=== PATIENT | female | born 1965 | race Caucasian/White ===

== ENCOUNTER 2019-10-15 07:50 | Inpatient (IN) | payer BC ==
[~2019-10-15] VITALS: Ht 165.1 cm; Wt 79.5 kg
[~2019-10-15 07:50] MED LIST: FLUO10TA PO; PHEN-786 PO
[2019-10-15 08:27] LABS: BASOPHILS % (AUTO) 0.5 % (0-1); EOSINOPHILS % (AUTO) 0.4 % (0-6); HEMATOCRIT 41.7 % (35.0-45.0); LYMPHOCYTES # (AUTO) 0.7 X10'3 (1.1-4.8); LYMPHOCYTES % (AUTO) 7.8 % (21-51); MEAN CORPUSCULAR HEMOGLOBIN 28.5 PG (27.0-31.0); MEAN CORPUSCULAR HGB CONC 33.6 g/dL (33.0-36.5); MONOCYTES # (AUTO) 0.8 X10'3 (0-0.9); MONOCYTES % (AUTO) 8.3 % (2-12); NEUTROPHILS # (AUTO) 7.7 X10'3 (1.8-7.7); PLATELET COUNT 251 X10'3 (140-440); RED CELL DISTRIBUTION WIDTH 14.3 % (11.5-14.5); WHITE BLOOD COUNT 9.3 X10'3 (4.5-11.0)
[2019-10-15 08:41] LABS: PARTIAL THROMBOPLASTIN TIME 24 SECONDS (22-32)
[2019-10-15 08:44] LABS: ALANINE AMINOTRANSFERASE 541 U/L (12-78); ALBUMIN 3.9 G/DL (3.4-5.0); ALKALINE PHOSPHATASE 289 IU/L (46-116); ANION GAP 8 (8-16); ASPARTATE AMINO TRANSFERASE 417 U/L (10-37); BILIRUBIN,TOTAL 5.2 MG/DL (0.1-1.0); BLOOD UREA NITROGEN 9 MG/DL (7-18); BUN/CREATININE RATIO 10.7 (6.6-38.0); CALCIUM 10.1 MG/DL (8.5-10.1); CHLORIDE 105 MMOL/L (99-107); CREATININE 0.84 MG/DL (0.40-0.90); GLUCOSE 137 MG/DL (70-104); POTASSIUM 3.5 MMOL/L (3.5-5.1); SODIUM 140 MMOL/L (135-145); TOTAL CARBON DIOXIDE 27.5 MMOL/L (24-32); eGFR 71 ML/MIN
[2019-10-15 08:45] LABS: ETHANOL < 0.010 GM/DL (0.0-0.010); MAGNESIUM 1.8 MG/DL (1.5-2.4)
[2019-10-15 09:16] LABS: LIPASE 12821 U/L (73-393)
[2019-10-15] MEDS ORDERED: potassium Cl 20 mEq SR tablet PO PRN (09:50)
[2019-10-15] MEDS ORDERED: HYDROcodone/acetaminophen 5mg/325mg tablet PO PRN (09:50)
[2019-10-15] MEDS ORDERED: magnesium 4gm in 100ml NS 100 ML IV PRN (09:50)
[2019-10-15] MEDS ORDERED: morphine 2 MG/ML inj. syringe IV PRN ×2 (09:50)
[2019-10-15] MEDS ORDERED: acetaminophen 325mg tablet PO PRN (09:50)
[2019-10-15] MEDS ORDERED: magnesium hydroxide 30ml (MOM) UD suspension PO PRN (09:50)
[2019-10-15] MEDS ORDERED: magnesium Cl slow-release 64mg tablet PO PRN (09:50)
[2019-10-15] MEDS ORDERED: morphine 4 MG/ML inj SYRINge IV ONE (09:50)
[2019-10-15] MEDS ORDERED: bisacodyl 10mg suppository rectal RC PRN (09:50)
[2019-10-15] MEDS ORDERED: mag hydrox/Alum hydrox/simeth 30ml oral suspension PO PRN (09:50)
[2019-10-15] MEDS ORDERED: ondansetron/PF 4mg/2ml inj IV ONE (09:50)
[2019-10-15] MEDS ORDERED: metoclopramide 5 mg/ml inj IV PRN (09:50)
[2019-10-15] MEDS ORDERED: potassium CL 10mEq/100ml bag 100 ML IV PRN ×2 (09:50)
[2019-10-15] MEDS ORDERED: magnesium 2GM in 50ml NS 50 ML IV PRN (09:50)
[2019-10-15 10:11] LABS: HEMOGLOBIN A1C 5.7 % (4.5-6.2)
[2019-10-15] MEDS: dextrose 5%-normal saline 1,000 ML IV SCH ×2 (10:20→20:20)
--- NOTE | 2019-10-15 10:58 | NUR ---
ATTEMPTED TO CALL REPORT TO JENA NIX ON SURGICAL UNIT. NURSE IS NOT AVAILABLE TO GET REPORT AND WILL CALL BACK, WHEN ABLE.
--- NOTE | 2019-10-15 11:13 | NUR ---
Patient in room ED 8. I have received report from JENA Lutz and had the opportunity to ask questions and assume patient care.
--- NOTE | 2019-10-15 11:30 | NUR ---
Pt arrived to surgical floor via gurney. Settled in room 344B with all belongings.
[2019-10-15 11:40] VITALS: BP 113/61
[2019-10-15] MEDS: morphine 2 MG/ML inj. syringe IV PRN ×2 (11:57→20:21)
[2019-10-15] MEDS: ondansetron/PF 4mg/2ml inj IV PRN (15:23)
[2019-10-15] MEDS: HYDROcodone/acetaminophen 10/325mg tab PO PRN (15:23)
[2019-10-15] MEDS ORDERED: NO HOME MEDS (15:51)
--- NOTE | 2019-10-15 18:46 | NUR ---
Problems reprioritized. Patient report given, questions answered & plan of care reviewed with JENA Hooks.
--- NOTE | 2019-10-15 18:47 | NUR ---
Patient in room [facility]. I have received report from DINAH BELLA and had the opportunity to ask questions and assume patient care.
[2019-10-15 20:00] VITALS: BP 121/60
[2019-10-15] MEDS: K and/or MAG REPLACEMENT MC SCH (20:00)
[2019-10-15] MEDS: heparin, porcine 5000 units/ml vial SQ SCH (20:24)
[2019-10-15] MEDS: pantoprazole 40 MG vial IV SCH (23:17)
[2019-10-15] MEDS: levoFLOXACIN-Levaquin 750MG/D5 150 ML IV SCH (23:21)
[2019-10-16] VITALS (11 sets, daily range): BP systolic 96–139; BP diastolic 53–85
[2019-10-16] MEDS: ondansetron/PF 4mg/2ml inj IV PRN ×3 (00:47→17:34)
[2019-10-16] MEDS: metroNIDAZOLE-Flagyl 500mg/NS 100 ML IV SCH ×3 (00:47→17:34)
[2019-10-16] MEDS: morphine 2 MG/ML inj. syringe IV PRN ×4 (00:49→17:34)
[2019-10-16] MEDS: acetaminophen 325mg tablet PO PRN (03:58)
[2019-10-16] MEDS: dextrose 5%-normal saline 1,000 ML IV SCH ×2 (05:40→07:53)
--- NOTE | 2019-10-16 06:00 | NUR ---
Patient in room [facility]. I have received report from JENA Douglass and had the opportunity to ask questions and assume patient care.
--- NOTE | 2019-10-16 06:21 | NUR ---
Problems reprioritized. Patient report given, questions answered & plan of care reviewed with ANDIE BELLA.
[2019-10-16 06:41] LABS: BASOPHILS % (AUTO) 0.2 % (0-1); EOSINOPHILS # (AUTO) 0.1 X10'3 (0-0.9); EOSINOPHILS % (AUTO) 0.7 % (0-6); HEMATOCRIT 36.7 % (35.0-45.0); HEMOGLOBIN 12.4 g/dl (12.0-16.0); LYMPHOCYTES # (AUTO) 1.3 X10'3 (1.1-4.8); LYMPHOCYTES % (AUTO) 12.2 % (21-51); MEAN CORPUSCULAR HEMOGLOBIN 28.5 PG (27.0-31.0); MEAN CORPUSCULAR HGB CONC 33.8 g/dL (33.0-36.5); MEAN CORPUSCULAR VOLUME 84.2 FL (78-98); MEAN PLATELET VOLUME 8.1 FL (7.4-10.4); MONOCYTES # (AUTO) 0.7 X10'3 (0-0.9); MONOCYTES % (AUTO) 5.9 % (2-12); NEUTROPHILS # (AUTO) 8.9 X10'3 (1.8-7.7); PLATELET COUNT 217 X10'3 (140-440); RED BLOOD COUNT 4.36 X10'6 (4.20-5.60); RED CELL DISTRIBUTION WIDTH 14.3 % (11.5-14.5)
[2019-10-16 07:11] LABS: ALANINE AMINOTRANSFERASE 343 U/L (12-78); ALBUMIN/GLOBULIN RATIO 0.8 (1.1-1.5); ALKALINE PHOSPHATASE 249 IU/L (46-116); ANION GAP 9 (8-16); ASPARTATE AMINO TRANSFERASE 132 U/L (10-37); BILIRUBIN,TOTAL 1.8 MG/DL (0.1-1.0); BLOOD UREA NITROGEN 8 MG/DL (7-18); BUN/CREATININE RATIO 11.9 (6.6-38.0); CALCIUM 8.8 MG/DL (8.5-10.1); CHLORIDE 108 MMOL/L (99-107); CHOL/HDL RATIO 2.6 (0.00-4.99); CHOLESTEROL 143 MG/DL (0-200); CREATININE 0.67 MG/DL (0.40-0.90); GLUCOSE 143 MG/DL (70-104); HDL CHOLESTEROL 56 MG/DL (35-60); LDL CHOLESTEROL 71 MG/DL (50-100); MAGNESIUM 1.8 MG/DL (1.5-2.4); PHOSPHORUS 2.6 MG/DL (2.3-4.5); POTASSIUM 3.3 MMOL/L (3.5-5.1); SODIUM 141 MMOL/L (135-145); TOTAL CARBON DIOXIDE 24.2 MMOL/L (24-32); TOTAL PROTEIN 6.9 G/DL (6.4-8.2); TRIGLYCERIDES 50 MG/DL (20-135); eGFR > 90 ML/MIN
[2019-10-16 07:46] LABS: LIPASE 2703 U/L (73-393)
[2019-10-16] MEDS: pantoprazole 40 MG vial IV SCH (07:52)
[2019-10-16] MEDS: K and/or MAG REPLACEMENT MC SCH ×2 (08:00→20:00)
[2019-10-16] MEDS: heparin, porcine 5000 units/ml vial SQ SCH ×2 (08:00→22:38)
[2019-10-16] MEDS ORDERED: fentaNYL/PF 50MCG/1 ML 2ML syringe ONE (09:05)
[2019-10-16] MEDS ORDERED: iohexol 300 MG/1 ML 50ml polymer ONE (09:06)
[2019-10-16] MEDS ORDERED: glucagon, human recombinant 1mg kit ONE (09:06)
[2019-10-16] MEDS ORDERED: LIDOcaine Viscous 15ml cup ONE (09:06)
[2019-10-16] MEDS ORDERED: MIDAZolam 5mg/5ml vial ONE (09:06)
[2019-10-16] MEDS ORDERED: ondansetron/PF 4mg/2ml inj ONE (10:51)
[2019-10-16] MEDS: metoclopramide 5 mg/ml inj IV PRN ×2 (13:27→19:09)
[2019-10-16] MEDS: levoFLOXACIN-Levaquin 750MG/D5 150 ML IV SCH (14:40)
[2019-10-16] MEDS: potassium Cl 20 mEq SR tablet PO PRN (14:40)
--- NOTE | 2019-10-16 18:00 | NUR ---
Problems reprioritized. Patient report given, questions answered & plan of care reviewed with JENA Douglass.
--- NOTE | 2019-10-16 18:30 | NUR ---
Patient was rounded on hourly and frequently assessed for needs.
--- NOTE | 2019-10-16 18:32 | NUR ---
Patient in room [facility]. I have received report from ANDIE BELLA and had the opportunity to ask questions and assume patient care.
[2019-10-16] MEDS: lactobacillus rhamnosus 10,000 MMU CELLS/CAPSULE PO SCH (20:00)
[2019-10-17] VITALS (19 sets, daily range): BP systolic 108–143; BP diastolic 58–95
[2019-10-17] MEDS: metroNIDAZOLE-Flagyl 500mg/NS 100 ML IV SCH ×3 (00:30→15:10)
[2019-10-17] MEDS: potassium Cl 20 mEq SR tablet PO PRN ×3 (00:34→20:03)
[2019-10-17] MEDS: acetaminophen 325mg tablet PO PRN (00:34)
[2019-10-17] MEDS: dextrose 5%-normal saline 1,000 ML IV SCH ×3 (02:58→21:55)
[2019-10-17 05:23] LABS: BASOPHILS # (AUTO) 0.2 X10'3 (0-0.2); BASOPHILS % (AUTO) 1.9 % (0-1); EOSINOPHILS # (AUTO) 0.1 X10'3 (0-0.9); EOSINOPHILS % (AUTO) 1.6 % (0-6); HEMATOCRIT 35.6 % (35.0-45.0); HEMOGLOBIN 12.1 g/dl (12.0-16.0); LYMPHOCYTES # (AUTO) 1.3 X10'3 (1.1-4.8); LYMPHOCYTES % (AUTO) 13.5 % (21-51); MEAN CORPUSCULAR HEMOGLOBIN 28.7 PG (27.0-31.0); MEAN CORPUSCULAR HGB CONC 33.9 g/dL (33.0-36.5); MEAN CORPUSCULAR VOLUME 84.8 FL (78-98); MEAN PLATELET VOLUME 8.4 FL (7.4-10.4); MONOCYTES # (AUTO) 0.6 X10'3 (0-0.9); MONOCYTES % (AUTO) 5.9 % (2-12); NEUTROPHILS # (AUTO) 7.2 X10'3 (1.8-7.7); NEUTROPHILS % (AUTO) 77.1 % (42-75); PLATELET COUNT 206 X10'3 (140-440); RED CELL DISTRIBUTION WIDTH 14.3 % (11.5-14.5); WHITE BLOOD COUNT 9.3 X10'3 (4.5-11.0)
[2019-10-17 05:53] LABS: ALANINE AMINOTRANSFERASE 231 U/L (12-78); ALBUMIN 2.8 G/DL (3.4-5.0); ALBUMIN/GLOBULIN RATIO 0.7 (1.1-1.5); ALKALINE PHOSPHATASE 245 IU/L (46-116); ANION GAP 8 (8-16); ASPARTATE AMINO TRANSFERASE 55 U/L (10-37); BILIRUBIN,TOTAL 0.9 MG/DL (0.1-1.0); BLOOD UREA NITROGEN 6 MG/DL (7-18); BUN/CREATININE RATIO 9.2 (6.6-38.0); CHLORIDE 108 MMOL/L (99-107); CREATININE 0.65 MG/DL (0.40-0.90); GLUCOSE 141 MG/DL (70-104); LIPASE 1057 U/L (73-393); MAGNESIUM 1.7 MG/DL (1.5-2.4); PHOSPHORUS 2.5 MG/DL (2.3-4.5); POTASSIUM 3.4 MMOL/L (3.5-5.1); SODIUM 141 MMOL/L (135-145); TOTAL PROTEIN 6.6 G/DL (6.4-8.2); eGFR > 90 ML/MIN
--- NOTE | 2019-10-17 06:17 | NUR ---
Problems reprioritized. Patient report given, questions answered & plan of care reviewed with SOPHIA BELLA.
[2019-10-17] MEDS ORDERED: BUPIVAcaine/PF 2.5mg/ml (0.25%) 10ml vial ONE (06:50)
[2019-10-17] MEDS ORDERED: BUPIVACAINE liposomal/PF 13.3 MG/ML vial IM ONE (06:50)
--- NOTE | 2019-10-17 07:12 | NUR ---
Verified EKG in paper chart, completed in ER.
[2019-10-17] MEDS: K and/or MAG REPLACEMENT MC SCH ×2 (08:00→20:00)
[2019-10-17] MEDS: pantoprazole 40 MG vial IV SCH (08:00)
[2019-10-17] MEDS: levoFLOXACIN-Levaquin 750MG/D5 150 ML IV SCH (08:00)
[2019-10-17] MEDS: heparin, porcine 5000 units/ml vial SQ SCH ×2 (08:00→20:05)
[2019-10-17] MEDS: lactobacillus rhamnosus 10,000 MMU CELLS/CAPSULE PO SCH ×2 (08:00→20:01)
[2019-10-17] MEDS ORDERED: midazolam 2 mg/2 ml injection ONE (08:14)
[2019-10-17] MEDS ORDERED: fentaNYL /PF 50mcg/ml 5ml ampule ONE (08:15)
[2019-10-17] MEDS ORDERED: ceFAZolin 1000mg inj ONE ×2 (08:32)
[2019-10-17] MEDS ORDERED: rocuronium 10mg/ml inj IV ONE (08:32)
[2019-10-17] MEDS ORDERED: propofol inj 20 ML IV ONE (08:32)
[2019-10-17] MEDS ORDERED: ringers solution, lacted 1,000 ML IV SCH (08:52)
[2019-10-17] MEDS ORDERED: ondansetron/PF 4mg/2ml inj IV PRN (08:55)
[2019-10-17] MEDS ORDERED: morphine 2 MG/ML inj. syringe IV PRN (08:55)
[2019-10-17] MEDS ORDERED: meperidine/PF 25mg/ml syringe IV PRN ×2 (08:55)
[2019-10-17] MEDS ORDERED: morphine 4 MG/ML inj SYRINge IV PRN (08:55)
[2019-10-17] MEDS ORDERED: proCHLORperazine 10 MG/2 ml inj IV PRN (08:55)
[2019-10-17] MEDS ORDERED: glycopyrrolate 0.2mg/ml inj ONE (09:59)
[2019-10-17] MEDS ORDERED: neostigmine methylsulfate 1 MG/ML 10ml vial ONE (09:59)
[2019-10-17] MEDS ORDERED: ondansetron/PF 4mg/2ml inj ONE (09:59)
[2019-10-17] MEDS ORDERED: dexamethasone sod phosphate 4mg/ml inj. ONE (10:00)
--- NOTE | 2019-10-17 10:01 | NUR ---
PT RECEIVED FROM OR VIA BED ACCOMPANIED BY ANESTHESIA DR ELLIS, REPORT GIVEN. PT DROWSY BUT AWAKENS, NO C/O PAIN AT THIS TIME. VSS, SKIN PINK AND WARM, RIVER. 20 GAUGE PIV R FA PATENT AND RUNNING LR AT 100 ML/HR. INCISION WITH DERMABOND CDI. Addendum: 10/17/19 at 1026 by Ambreen Nascimento RN Amended: Links added.
[2019-10-17] MEDS: meperidine/PF 25mg/ml syringe IV PRN ×3 (10:27→10:53)
--- NOTE | 2019-10-17 11:21 | NUR ---
TRANSFERRED TO ROOM VIA BED WITH RAILS UP, BED DOWN. REPORT GIVEN AND LEFT IN CARE OF SOPHIA BELLA. VSS, D/C CRITERIA MET, JAIME STINSON PATENT, INCISION WITH DERMABOND CDI, PAIN LEVEL AT 5. Addendum: 10/17/19 at 1128 by Ambreen Nascimento RN Amended: Links added.
--- NOTE | 2019-10-17 11:38 | NUR ---
PT. DELIVER TO ROOM BY IMAGING SCIENCE PROFESSOR. SLEEPY, VSS, RESPONDS TO VERBAL STIMULI, SLEEPING NONVERBAL PAIN 0, BUT WHEN AWAKEN PT. STATES MILD PAIN- "SORENESS". SURGICAL SITE NATHALIA, NO S/SX BLEEDING NOTED. POST OP VITALS STARTED, FLUIDS HUNG. WILL CONT. TO MONITOR PT.
[2019-10-17] MEDS: HYDROcodone/acetaminophen 10/325mg tab PO PRN ×2 (12:50→21:54)
--- NOTE | 2019-10-17 12:58 | NUR ---
pT. VOIDED 200 ML. POST VOID RESIDUAL BLADDER SCAN SHOWED 0 ML. Addendum: 10/17/19 at 1300 by Karey Escoto RN DISREGARD. WRONG PT.
--- NOTE | 2019-10-17 13:51 | NUR ---
PT VOIDED 200ML. POST VOID RESIDUAL 619ML. PT REFUSED TO AMBULATE. WILL STRAIGHT CATH AND THEN REASSESS AT A LATER POINT.
[2019-10-17] MEDS: ondansetron/PF 4mg/2ml inj IV PRN (15:10)
[2019-10-17] MEDS: morphine 2 MG/ML inj. syringe IV PRN (15:11)
[2019-10-17 15:12] LABS: CLARITY,URINE CLEAR (Clear); COLOR,URINE YELLOW (Yellow); GLUCOSE, URINE 500 mg/dl (Neg); KETONES,URINE 15 mg/dl (Neg); LEUKOCYTE ESTERASE ,URINE NEGATIVE (Neg); NITRITES, URINE NEGATIVE (Neg); OCCULT BLOOD,URINE SMALL (Neg); PROTEIN,URINE NEGATIVE (Neg); UROBILINOGEN,URINE 0.2 E.U/dL (0.2-1.0)
[2019-10-17 15:21] LABS: UA COLLECTION TYPE STRAIGHT CATH
[2019-10-17 15:22] LABS: BACTERIA,URINE NONE SEEN /HPF (Neg); MUCUS STRANDS FEW /LPF (Neg); SQUAMOUS EPITHELIAL CELL,UR NONE SEEN /LPF (FEW); WBC,URINE NONE SEEN /HPF (0-4)
--- NOTE | 2019-10-17 15:48 | NUR ---
PAGER ID: [phone] MESSAGE: Pamela ENDRESS 344B S/P DAY0 OPEN BRO. HAD POST VOID RESIDUAL OF 615, WAS STRAIGHT CATHED AT 1300 PER PROTOCOL, MAY WE HAVE ORDER FOR F/C WITH PARAMETERS FOR ADVERTISING OPERATIONS MANAGER? THANK YOU. SOPHIA
--- NOTE | 2019-10-17 18:12 | NUR ---
Gave report to Evonne BELLA.
--- NOTE | 2019-10-17 18:30 | NUR ---
Patient in room [facility]. I have received report from SOPHIA BELLA and had the opportunity to ask questions and assume patient care.
[2019-10-18] VITALS: BP 129/74
[2019-10-18] MEDS: morphine 2 MG/ML inj. syringe IV PRN ×2 (00:43→06:03)
[2019-10-18] MEDS: metroNIDAZOLE-Flagyl 500mg/NS 100 ML IV SCH ×2 (00:45→08:37)
[2019-10-18] MEDS: HYDROcodone/acetaminophen 10/325mg tab PO PRN ×2 (04:16→08:31)
[2019-10-18 05:28] LABS: BASOPHILS % (AUTO) 0.1 % (0-1); EOSINOPHILS % (AUTO) 0.3 % (0-6); HEMATOCRIT 35.5 % (35.0-45.0); LYMPHOCYTES # (AUTO) 1.6 X10'3 (1.1-4.8); LYMPHOCYTES % (AUTO) 14.3 % (21-51); MEAN CORPUSCULAR HEMOGLOBIN 28.8 PG (27.0-31.0); MEAN CORPUSCULAR HGB CONC 33.6 g/dL (33.0-36.5); MEAN CORPUSCULAR VOLUME 85.7 FL (78-98); MEAN PLATELET VOLUME 8.5 FL (7.4-10.4); MONOCYTES # (AUTO) 0.7 X10'3 (0-0.9); MONOCYTES % (AUTO) 6.7 % (2-12); NEUTROPHILS # (AUTO) 8.6 X10'3 (1.8-7.7); NEUTROPHILS % (AUTO) 78.6 % (42-75); PLATELET COUNT 276 X10'3 (140-440); RED BLOOD COUNT 4.15 X10'6 (4.20-5.60); RED CELL DISTRIBUTION WIDTH 13.7 % (11.5-14.5)
[2019-10-18 05:38] LABS: ALANINE AMINOTRANSFERASE 163 U/L (12-78); ALBUMIN 2.9 G/DL (3.4-5.0); ALBUMIN/GLOBULIN RATIO 0.7 (1.1-1.5); ALKALINE PHOSPHATASE 220 IU/L (46-116); ANION GAP 5 (8-16); ASPARTATE AMINO TRANSFERASE 28 U/L (10-37); BILIRUBIN,TOTAL 0.7 MG/DL (0.1-1.0); BLOOD UREA NITROGEN 5 MG/DL (7-18); BUN/CREATININE RATIO 6.7 (6.6-38.0); CALCIUM 9.2 MG/DL (8.5-10.1); CHLORIDE 106 MMOL/L (99-107); CREATININE 0.75 MG/DL (0.40-0.90); GLUCOSE 144 MG/DL (70-104); LIPASE 421 U/L (73-393); MAGNESIUM 1.6 MG/DL (1.5-2.4); PHOSPHORUS 3.1 MG/DL (2.3-4.5); POTASSIUM 3.3 MMOL/L (3.5-5.1); SODIUM 141 MMOL/L (135-145); TOTAL CARBON DIOXIDE 29.7 MMOL/L (24-32); TOTAL PROTEIN 6.9 G/DL (6.4-8.2); eGFR 81 ML/MIN
--- NOTE | 2019-10-18 06:22 | NUR ---
Problems reprioritized. Patient report given, questions answered & plan of care reviewed with SOPHIA BELLA.
[2019-10-18 07:16] VITALS: BP 142/87
[2019-10-18] MEDS: potassium Cl 20 mEq SR tablet PO PRN (08:30)
[2019-10-18] MEDS: heparin, porcine 5000 units/ml vial SQ SCH ×2 (08:31→20:18)
[2019-10-18] MEDS: lactobacillus rhamnosus 10,000 MMU CELLS/CAPSULE PO SCH ×2 (08:31→20:18)
[2019-10-18] MEDS: pantoprazole 40 MG vial IV SCH (08:31)
[2019-10-18] MEDS: K and/or MAG REPLACEMENT MC SCH ×2 (08:32→20:00)
[2019-10-18] MEDS: pantoprazole 40mg Tablet.DR PO SCH (08:35)
[2019-10-18] MEDS: levoFLOXACIN-Levaquin 750MG/D5 150 ML IV SCH (08:37)
--- NOTE | 2019-10-18 09:10 | NUR ---
PAGER ID: [phone] MESSAGE: Pamela Fuentesress 344B c/o uncontrolled pain. ms 2mg, 1mg, [place] 10mg and 5mg ordered and given already. hypo BS, no gas. pt. ref. to ambulate. ALSO UA glucose 500 with ketones... do you still want on D5/NS a@ 100-on CL diet. Karey [phone]
[2019-10-18] MEDS: HYDROmorphone/NS 1 mg/ml CADD 50 ML IV SCH ×8 (11:00→23:00)
[2019-10-18 11:14] VITALS: BP 119/75
[2019-10-18] MEDS: ketorolac tromethamine 15mg/ml inj. IV SCH ×3 (11:55→20:18)
[2019-10-18] MEDS: potassium Cl 20mEq in D5-NS 1,000 ML IV SCH ×2 (11:55→19:22)
--- NOTE | 2019-10-18 18:27 | NUR ---
Gave report to Lianna Lopez RN.
--- NOTE | 2019-10-18 18:36 | NUR ---
Patient in room [facility]. I have received report from JENA Fisher and had the opportunity to ask questions and assume patient care. Addendum: 10/18/19 at 1836 by Mayda Clark RN Amended: Links added.
[2019-10-18 19:37] VITALS: BP 122/75
[2019-10-18 23:20] VITALS: BP 118/64
[2019-10-19] MEDS: HYDROmorphone/NS 1 mg/ml CADD 50 ML IV SCH ×12 (01:00→23:00)
[2019-10-19] MEDS: ketorolac tromethamine 15mg/ml inj. IV SCH ×4 (02:00→20:00)
[2019-10-19] MEDS: potassium Cl 20mEq in D5-NS 1,000 ML IV SCH ×2 (03:00→11:46)
[2019-10-19 05:12] LABS: BASOPHILS % (AUTO) 0.2 % (0-1); EOSINOPHILS # (AUTO) 0.1 X10'3 (0-0.9); EOSINOPHILS % (AUTO) 1.4 % (0-6); HEMATOCRIT 35.3 % (35.0-45.0); HEMOGLOBIN 11.8 g/dl (12.0-16.0); LYMPHOCYTES # (AUTO) 1.6 X10'3 (1.1-4.8); LYMPHOCYTES % (AUTO) 22.3 % (21-51); MEAN CORPUSCULAR HEMOGLOBIN 28.6 PG (27.0-31.0); MEAN CORPUSCULAR HGB CONC 33.5 g/dL (33.0-36.5); MEAN CORPUSCULAR VOLUME 85.3 FL (78-98); MONOCYTES # (AUTO) 0.7 X10'3 (0-0.9); MONOCYTES % (AUTO) 9.3 % (2-12); NEUTROPHILS # (AUTO) 4.9 X10'3 (1.8-7.7); NEUTROPHILS % (AUTO) 66.8 % (42-75); PLATELET COUNT 242 X10'3 (140-440); RED BLOOD COUNT 4.14 X10'6 (4.20-5.60); RED CELL DISTRIBUTION WIDTH 13.8 % (11.5-14.5); WHITE BLOOD COUNT 7.4 X10'3 (4.5-11.0)
[2019-10-19 05:24] LABS: ALANINE AMINOTRANSFERASE 114 U/L (12-78); ALBUMIN 2.7 G/DL (3.4-5.0); ALBUMIN/GLOBULIN RATIO 0.7 (1.1-1.5); ALKALINE PHOSPHATASE 180 IU/L (46-116); ANION GAP 6 (8-16); ASPARTATE AMINO TRANSFERASE 32 U/L (10-37); BILIRUBIN,TOTAL 0.5 MG/DL (0.1-1.0); BLOOD UREA NITROGEN 3 MG/DL (7-18); BUN/CREATININE RATIO 4.2 (6.6-38.0); CALCIUM 8.7 MG/DL (8.5-10.1); CHLORIDE 105 MMOL/L (99-107); CREATININE 0.71 MG/DL (0.40-0.90); GLUCOSE 142 MG/DL (70-104); LIPASE 464 U/L (73-393); MAGNESIUM 1.5 MG/DL (1.5-2.4); PHOSPHORUS 3.2 MG/DL (2.3-4.5); POTASSIUM 3.4 MMOL/L (3.5-5.1); SODIUM 140 MMOL/L (135-145); TOTAL CARBON DIOXIDE 29.1 MMOL/L (24-32); TOTAL PROTEIN 6.6 G/DL (6.4-8.2); eGFR 86 ML/MIN
--- NOTE | 2019-10-19 06:28 | NUR ---
Problems reprioritized. Patient report given, questions answered & plan of care reviewed with JENA Dominguez. Addendum: 10/19/19 at 0628 by Mayda Clark RN Amended: Links added.
[2019-10-19 07:00] VITALS: BP 126/78
[2019-10-19] MEDS: K and/or MAG REPLACEMENT MC SCH ×4 (08:00→20:00)
[2019-10-19] MEDS: heparin, porcine 5000 units/ml vial SQ SCH ×2 (08:10→20:00)
[2019-10-19] MEDS: lactobacillus rhamnosus 10,000 MMU CELLS/CAPSULE PO SCH ×2 (08:11→20:00)
[2019-10-19] MEDS: pantoprazole 40mg Tablet.DR PO SCH (08:11)
[2019-10-19 11:00] VITALS: BP 127/86
[2019-10-19] MEDS ORDERED: potassium CL 10mEq/100ml bag 100 ML IV PRN (12:35)
[2019-10-19] MEDS ORDERED: magnesium Cl slow-release 64mg tablet PO PRN (12:35)
[2019-10-19] MEDS ORDERED: magnesium 4gm in 100ml NS 100 ML IV PRN (12:35)
[2019-10-19] MEDS ORDERED: potassium Cl 20 mEq SR tablet PO PRN ×2 (12:35)
--- NOTE | 2019-10-19 18:12 | NUR ---
Patient in room [facility]. I have received report from JENA Dominguez and had the opportunity to ask questions and assume patient care.
[2019-10-19 19:24] VITALS: BP 107/51
[2019-10-20 00:04] VITALS: BP 105/64
[2019-10-20] MEDS: HYDROmorphone/NS 1 mg/ml CADD 50 ML IV SCH ×3 (01:00→05:00)
[2019-10-20] MEDS: ketorolac tromethamine 15mg/ml inj. IV SCH ×3 (01:55→14:00)
[2019-10-20 05:20] LABS: BASOPHILS # (AUTO) 0.1 X10'3 (0-0.2); BASOPHILS % (AUTO) 0.7 % (0-1); EOSINOPHILS # (AUTO) 0.2 X10'3 (0-0.9); EOSINOPHILS % (AUTO) 2.7 % (0-6); HEMATOCRIT 36.6 % (35.0-45.0); HEMOGLOBIN 12.1 g/dl (12.0-16.0); LYMPHOCYTES # (AUTO) 1.8 X10'3 (1.1-4.8); LYMPHOCYTES % (AUTO) 25.1 % (21-51); MEAN CORPUSCULAR HEMOGLOBIN 28.5 PG (27.0-31.0); MEAN CORPUSCULAR HGB CONC 33.2 g/dL (33.0-36.5); MEAN CORPUSCULAR VOLUME 85.8 FL (78-98); MEAN PLATELET VOLUME 8.3 FL (7.4-10.4); MONOCYTES # (AUTO) 0.6 X10'3 (0-0.9); MONOCYTES % (AUTO) 8.3 % (2-12); NEUTROPHILS # (AUTO) 4.6 X10'3 (1.8-7.7); NEUTROPHILS % (AUTO) 63.2 % (42-75); PLATELET COUNT 278 X10'3 (140-440); RED BLOOD COUNT 4.26 X10'6 (4.20-5.60); RED CELL DISTRIBUTION WIDTH 13.6 % (11.5-14.5); WHITE BLOOD COUNT 7.4 X10'3 (4.5-11.0)
[2019-10-20 05:49] LABS: ALANINE AMINOTRANSFERASE 103 U/L (12-78); ALBUMIN 2.8 G/DL (3.4-5.0); ALBUMIN/GLOBULIN RATIO 0.7 (1.1-1.5); ALKALINE PHOSPHATASE 181 IU/L (46-116); ANION GAP 5 (8-16); ASPARTATE AMINO TRANSFERASE 43 U/L (10-37); BILIRUBIN,TOTAL 0.5 MG/DL (0.1-1.0); BLOOD UREA NITROGEN 5 MG/DL (7-18); BUN/CREATININE RATIO 7.5 (6.6-38.0); CALCIUM 9.4 MG/DL (8.5-10.1); CHLORIDE 106 MMOL/L (99-107); CREATININE 0.67 MG/DL (0.40-0.90); GLUCOSE 105 MG/DL (70-104); MAGNESIUM 1.6 MG/DL (1.5-2.4); POTASSIUM 3.8 MMOL/L (3.5-5.1); SODIUM 139 MMOL/L (135-145); TOTAL PROTEIN 6.8 G/DL (6.4-8.2); eGFR > 90 ML/MIN
[2019-10-20] MEDS ORDERED: oxyCODONE/APAP 5-325mg tablet PO PRN ×2 (06:20)
[2019-10-20] MEDS ORDERED: CADD PCA waste documentation MC PRN (07:35)
[2019-10-20] MEDS: K and/or MAG REPLACEMENT MC SCH ×2 (07:40)
[2019-10-20] MEDS: pantoprazole 40mg Tablet.DR PO SCH (07:44)
[2019-10-20] MEDS: lactobacillus rhamnosus 10,000 MMU CELLS/CAPSULE PO SCH (07:44)
[2019-10-20] MEDS: heparin, porcine 5000 units/ml vial SQ SCH (07:45)
[2019-10-20 08:00] VITALS: BP 120/60
[2019-10-20] MEDS: potassium Cl 20mEq in D5-NS 1,000 ML IV SCH (09:42)
[2019-10-20] MEDS ORDERED: PER5325T PO (11:28)
--- NOTE | 2019-10-20 14:35 | NUR ---
patient states that she understands all discharge instructions and will follow up as directed. IV was removed with the canula intact. Patient was safely wheeled to private vehicle where he mom will take her home.
== END 2019-10-20 15:25 | disposition home or self-care (01) | DRG 414 ==
LOC: ER 07:50 → ED HOLD 09:49 → SUR 3N 11:23
PROVIDERS: ADMIT Family Medicine; ATTEND Family Medicine
PROC: 0F798ZZ Dilation of Common Bile Duct, Via Natural or Artificial Opening Endoscopic (ICD-10-PCS; 2019-10-16)
PROC: 0FC98ZZ Extirpation of Matter from Common Bile Duct, Via Natural or Artificial Opening Endoscopic (ICD-10-PCS; 2019-10-16)
PROC: 0FT40ZZ Resection of Gallbladder, Open Approach (ICD-10-PCS; principal; 2019-10-17 08:11)
DX: K80.62 Calculus of gallbladder and bile duct with acute cholecystitis without obstruction (principal); K85.10 Biliary acute pancreatitis without necrosis or infection; E87.6 Hypokalemia; Z90.710 Acquired absence of both cervix and uterus
CPT/HCPCS: 43262; 43264; 96374; 96375; 96376; 99285; Z7506; Z7508; 36415; 71045; 76700; 80053; 80061; 80320; 81001; 82948; 83036; 83690; 83735; 84100; 84484; 85025; 85610; 85730; 87081; 93005; 99152; 99153; A4215; A4314; A4618; A4620; A7000; C1769; C9113; C9290; G0378; J0690; J1100; J1610; J1644; J1885; J1956; J2175; J2250; J2270; J2405; J2704; J2710; J2765; J3010; J3480; J3490; J7040; J7042; J7120; Q9967

== ENCOUNTER 2019-12-17 10:57 | Emergency (ER) | payer BC ==
[~2019-12-17] VITALS: Ht 167.6 cm; Wt 80.9 kg
[~2019-12-17 10:57] MED LIST changes: -FLUO10TA PO; +NO HOME MEDS; +PER5325T PO; -PHEN-786 PO
--- NOTE | 2019-12-17 12:15 | NUR ---
Barcenas virus swab sent to the lab for processing.
[2019-12-17] MEDS ORDERED: ketorolac tromethamine 15mg/ml inj. IM ONE (12:20)
[2019-12-17 13:04] LABS: ALANINE AMINOTRANSFERASE 52 U/L (12-78); ALBUMIN 3.9 G/DL (3.4-5.0); ALBUMIN/GLOBULIN RATIO 1.1 (1.1-1.5); ALKALINE PHOSPHATASE 123 IU/L (46-116); ANION GAP 12 (8-16); ASPARTATE AMINO TRANSFERASE 37 U/L (10-37); BILIRUBIN,TOTAL 0.3 MG/DL (0.1-1.0); BLOOD UREA NITROGEN 14 MG/DL (7-18); BUN/CREATININE RATIO 21.2 (6.6-38.0); CALCIUM 9.3 MG/DL (8.5-10.1); CHLORIDE 107 MMOL/L (99-107); CREATININE 0.66 MG/DL (0.40-0.90); GLUCOSE 89 MG/DL (70-104); LIPASE 171 U/L (73-393); SODIUM 143 MMOL/L (135-145); TOTAL PROTEIN 7.6 G/DL (6.4-8.2); eGFR > 90 ML/MIN
--- NOTE | 2019-12-17 13:15 | NUR ---
Lab phoned to report they will not run the dupont virus swab until they hear from Dr. Hare. LACEY Perez to speak with Dr. Hare regarding the swab.
--- NOTE | 2019-12-17 13:25 | NUR ---
Rapid Barcenas virus swab cancelled and the send out test can be performed if the patient wishes to have the testing completed. Pt is asymptomatic for COVID-19 at this time. US is at the bedside at this time.
--- NOTE | 2019-12-17 13:30 | NUR ---
Labs recollected due to initial specimens hemolyzed.
[2019-12-17 13:41] LABS: BASOPHILS % (AUTO) 0.7 % (0-1); EOSINOPHILS # (AUTO) 0.1 X10'3 (0-0.9); EOSINOPHILS % (AUTO) 1.6 % (0-6); HEMATOCRIT 40.2 % (35.0-45.0); HEMOGLOBIN 13.3 g/dl (12.0-16.0); LYMPHOCYTES # (AUTO) 1.8 X10'3 (1.1-4.8); LYMPHOCYTES % (AUTO) 30.3 % (21-51); MEAN CORPUSCULAR HEMOGLOBIN 28.2 PG (27.0-31.0); MEAN CORPUSCULAR HGB CONC 33.1 g/dL (33.0-36.5); MEAN CORPUSCULAR VOLUME 85.1 FL (78-98); MEAN PLATELET VOLUME 8.1 FL (7.4-10.4); MONOCYTES # (AUTO) 0.5 X10'3 (0-0.9); MONOCYTES % (AUTO) 7.6 % (2-12); NEUTROPHILS # (AUTO) 3.6 X10'3 (1.8-7.7); NEUTROPHILS % (AUTO) 59.8 % (42-75); PLATELET COUNT 244 X10'3 (140-440); RED BLOOD COUNT 4.73 X10'6 (4.20-5.60); RED CELL DISTRIBUTION WIDTH 14.2 % (11.5-14.5)
[2019-12-17] MEDS ORDERED: iohexol 300mg/ml 100ml inj. ONE (14:00)
--- NOTE | 2019-12-17 14:10 | NUR ---
To CT scan via w/c with Shop Repairer.
[2019-12-17] MEDS ORDERED: diatrozoate meglu/diatrozoate sod (37% iodine) 120ML oral solution PO ONE (16:00)
[2019-12-17] MEDS ORDERED: diatr meglu/diatrizoate 30ml oral sol.-(3 dose) bottle PO ONE (16:00)
[2019-12-17] MEDS ORDERED: NAPR220T67 PO (16:20)
[2019-12-17] MEDS ORDERED: IBUP-24 PO (16:20)
[2019-12-17] MEDS ORDERED: DIPH50CA46 PO (16:20)
--- NOTE | 2019-12-17 16:24 | NUR ---
CT scan staff is aware the patient has been given gastrografin according to Dr. Shaikh's instruction and the scan should be completed within one hour.
--- NOTE | 2019-12-17 16:59 | NUR ---
Pt ambulatory with steady gait to the restroom. Pt is awaiting repeat CT scan to be completed after 171
--- NOTE | 2019-12-17 17:15 | NUR ---
Pt transported via w/c to CT scan for repeat CT scan.
--- NOTE | 2019-12-17 17:36 | NUR ---
Pt returned from CT scan, awaiting CT results for further orders or disposition.
[2019-12-17] MEDS ORDERED: FAMO-49 PO (18:12)
[2019-12-17] MEDS ORDERED: DICY10CA88 PO (18:12)
[2019-12-17 18:32] VITALS: BP 132/84
== END 2019-12-17 18:40 | disposition home or self-care (01) ==
LOC: ER 10:57
DX: R10.11 Right upper quadrant pain (principal); Z90.710 Acquired absence of both cervix and uterus; Z79.899 Other long term (current) drug therapy
CPT/HCPCS: 36415; 74176; 74177; 76700; 80053; 83605; 83690; 84145; 85025; 87040; 96372; 99285; J1885; Q9963; Q9967

== ENCOUNTER 2022-03-31 11:44 | Emergency (ER) | payer BC ==
[~2022-03-31] VITALS: Ht 167.6 cm; Wt 81.8 kg
[~2022-03-31 11:44] MED LIST changes: +DICY10CA88 PO; +DIPH-907 PO; +FAMO-49 PO; +IBUP-24 PO; +NAPR220T67 PO; -NO HOME MEDS; -PER5325T PO
[2022-03-31 12:37] LABS: BASOPHILS % (AUTO) 0.4 % (0-1); EOSINOPHILS # (AUTO) 0.1 X10'3 (0-0.9); EOSINOPHILS % (AUTO) 1.4 % (0-6); HEMATOCRIT 43.5 % (35.0-45.0); HEMOGLOBIN 14.6 g/dl (12.0-16.0); LYMPHOCYTES # (AUTO) 1.9 X10'3 (1.1-4.8); LYMPHOCYTES % (AUTO) 29.7 % (21-51); MEAN CORPUSCULAR HEMOGLOBIN 29.1 PG (27.0-31.0); MEAN CORPUSCULAR HGB CONC 33.5 g/dL (33.0-36.5); MEAN CORPUSCULAR VOLUME 86.8 FL (78-98); MEAN PLATELET VOLUME 8.1 FL (7.4-10.4); MONOCYTES # (AUTO) 0.5 X10'3 (0-0.9); MONOCYTES % (AUTO) 6.9 % (2-12); NEUTROPHILS % (AUTO) 61.6 % (42-75); PLATELET COUNT 249 X10'3 (140-440); RED BLOOD COUNT 5.01 X10'6 (4.20-5.60); RED CELL DISTRIBUTION WIDTH 14.1 % (11.5-14.5); WHITE BLOOD COUNT 6.5 X10'3 (4.5-11.0)
[2022-03-31 12:46] LABS: ALANINE AMINOTRANSFERASE 36 U/L (12-78); ALBUMIN 4.3 G/DL (3.4-5.0); ALBUMIN/GLOBULIN RATIO 1.1 (1.1-1.5); ALKALINE PHOSPHATASE 122 IU/L (46-116); ANION GAP 9 (8-16); ASPARTATE AMINO TRANSFERASE 21 U/L (10-37); BILIRUBIN,TOTAL 0.4 MG/DL (0.1-1.0); BLOOD UREA NITROGEN 15 MG/DL (7-18); BUN/CREATININE RATIO 18.3 (6.6-38.0); CALCIUM 9.6 MG/DL (8.5-10.1); CHLORIDE 104 MMOL/L (99-107); CREATININE 0.82 MG/DL (0.40-0.90); GLUCOSE 93 MG/DL (70-104); POTASSIUM 4.2 MMOL/L (3.5-5.1); SODIUM 140 MMOL/L (135-145); TOTAL CARBON DIOXIDE 27.3 MMOL/L (24-32); TOTAL PROTEIN 8.2 G/DL (6.4-8.2); eGFR 73 ML/MIN
[2022-03-31 15:48] LABS: D-DIMER 0.22 MG/L FEU (0-0.50)
[2022-03-31 16:09] VITALS: BP 129/92
== END 2022-03-31 16:13 | disposition home or self-care (01) ==
LOC: ER 11:45
DX: R07.89 Other chest pain (principal); M54.89 Other dorsalgia; F41.9 Anxiety disorder, unspecified; Z90.710 Acquired absence of both cervix and uterus; Z79.899 Other long term (current) drug therapy
CPT/HCPCS: 36415; 71045; 80053; 83880; 84484; 85025; 85379; 93005; 99285